=== PATIENT | female | born 1930 | race Caucasian/White ===

== ENCOUNTER 2018-04-24 19:22 | Emergency (ER) | payer OTHER, MEDICAID ==
[~2018-04-24] VITALS: Ht 157.5 cm; Wt 63.5 kg
[2018-04-24 19:22] VITALS: BP_SYST 149
[2018-04-24] MEDS ORDERED: NACL 0.9% 1,000 ML IV ONE (19:49)
[2018-04-24] MEDS ORDERED: NITROGLYCERIN 0.4 MG TAB.SUBL SL ONE (20:00)
[2018-04-24] MEDS ORDERED: ASPIRIN 81 MG TAB.CHEW PO ONE (20:00)
[2018-04-24 20:09] LABS: BASOPHILS # (AUTO) 0.1 K/uL (0.0-0.2); BASOPHILS % (AUTO) 0.7 % (0.0-2.0); EOSINOPHILS # (AUTO) 0.2 K/uL (0.0-0.4); EOSINOPHILS % (AUTO) 2.3 % (0.0-4.0); HEMATOCRIT 33.1 % (36-48); HEMOGLOBIN 11.2 g/dL (12.0-16.0); LYMPHOCYTES # (AUTO) 2.4 K/uL (1.0-5.5); LYMPHOCYTES % (AUTO) 29.2 % (20.5-51.5); MEAN CORPUSCULAR HEMOGLOBIN 30 pg (27-31); MEAN CORPUSCULAR HGB CONC 34 % (32-36); MEAN CORPUSCULAR VOLUME 89 fL (79.0-98.0); MONOCYTES % (AUTO) 12.2 % (1.7-9.3); NEUTROPHILS # (AUTO) 4.6 K/uL (1.8-7.7); NEUTROPHILS % (AUTO) 55.6 % (40.0-70.0); RED BLOOD CELL COUNT(AUTO) 3.71 MIL/uL (4.2-6.2); RED CELL DISTRIBUTION WIDTH 13.8 % (9.0-15.0); WHITE BLOOD COUNT (AUTO) 8.3 K/uL (4.8-10.8)
[2018-04-24 20:21] LABS: ANION GAP 8 (5-15); CALCIUM 8.6 mg/dL (8.4-11.0); CHLORIDE 107 mmol/L (98-107); GLUCOSE 117 mg/dL (70-99); POTASSIUM 4.7 mmol/L (3.5-5.1); SODIUM SERUM 143 mmol/L (136-145); UREA NITROGEN, BLOOD 17 mg/dL (8-21)
[2018-04-24 20:25] LABS: ALANINE AMINOTRANSFERASE 20 U/L (12-78); ALBUMIN 3.2 g/dL (3.4-4.8); AMYLASE 45 U/L (0-100); ASPARTATE AMINOTRANSFERASE 19 U/L (10-37); LIPASE 146 U/L (73-393); TOTAL BILIRUBIN 0.3 mg/dL (0.0-1.0)
[2018-04-24 20:33] LABS: PLATELET COUNT (AUTO) 93 K/uL (130-430)
[2018-04-24 20:44] LABS: INR 1.1 (0.8-1.2); PROTHROMBIN TIME 10.8 SECS (9.5-12.5)
[2018-04-24 23:14] VITALS: BP_SYST 149
== END 2018-04-24 23:14 | disposition home or self-care (01) ==
LOC: SED 19:22
DX: R07.89 Other chest pain (principal); R03.0 Elevated blood-pressure reading, without diagnosis of hypertension; Z90.710 Acquired absence of both cervix and uterus; Z90.49 Acquired absence of other specified parts of digestive tract
CPT/HCPCS: 36415; 71045; 80053; 82150; 82550; 83690; 84484; 85025; 85610; 85730; 93005; 99285; J7030

== ENCOUNTER 2018-12-08 10:03 | Inpatient (IN) | payer OTHER, MEDICAID ==
[~2018-12-08] VITALS: Ht 157.5 cm; Wt 56.7 kg
[2018-12-08 10:13] VITALS: BP_SYST 117
[2018-12-08 12:55] LABS: ANION GAP 7 (5-15); CALCIUM 8.2 mg/dL (8.4-11.0); CHLORIDE 104 mmol/L (98-107); CREATININE 0.89 mg/dL (0.55-1.30); GLUCOSE 115 mg/dL (70-99); POTASSIUM 3.4 mmol/L (3.5-5.1); SODIUM SERUM 135 mmol/L (136-145); UREA NITROGEN, BLOOD 15 mg/dL (8-21)
[2018-12-08 13:05] LABS: HEMATOCRIT 29.7 % (36-48); HEMOGLOBIN 9.6 g/dL (12.0-16.0); MEAN CORPUSCULAR HEMOGLOBIN 28 pg (27-31); MEAN CORPUSCULAR HGB CONC 32 % (32-36); MEAN CORPUSCULAR VOLUME 88 fL (79.0-98.0); PLATELET COUNT (AUTO) 68 K/uL (130-430); RED BLOOD CELL COUNT(AUTO) 3.37 MIL/uL (4.2-6.2); RED CELL DISTRIBUTION WIDTH 14.8 % (9.0-15.0); WHITE BLOOD COUNT (AUTO) 57.1 K/uL (4.8-10.8)
[2018-12-08 13:08] LABS: ALANINE AMINOTRANSFERASE 37 U/L (12-78); ALBUMIN 2.6 g/dL (3.4-4.8); ASPARTATE AMINOTRANSFERASE 56 U/L (10-37); TOTAL BILIRUBIN 0.6 mg/dL (0.0-1.0)
[2018-12-08 13:36] LABS: ERYTHROCYTE SEDIMENTATION RATE 34 MM/HR (0-20)
[2018-12-08 13:47] LABS: BAND % (MANUAL) 15 % (0-6)
[2018-12-08 13:48] LABS: ATYPICAL LYMPHOCYTES % 0 % (0-0); LYMPHOCYTES % (MANUAL) 9 % (20-46)
[2018-12-08 13:49] LABS: BASOPHILS % (MANUAL) 0 % (0-2); BLASTS, MANUAL % 3 % (0-0); EOSINOPHILS % (MANUAL) 0 % (0-7); METAMYELOCYTES % 8 % (0-0); MONOCYTES % (MANUAL) 12 % (0-11); MYELOCYTES % 8 % (0-0); PROMYELOCYTES % 3 % (0-0)
[2018-12-08 13:50] LABS: OTHER CELLS,MANUAL % 0 (0-0)
[2018-12-08] MEDS ORDERED: IOHEXOL 100 ML IV ONE (14:23)
[2018-12-08] MEDS ORDERED: ONDANSETRON HCL 4 MG/2 ML VIAL IVP ONE (16:30)
[2018-12-08] MEDS ORDERED: MORPHINE 4 MG/ML INJ. SYRINGE IVP ONE (16:30)
[2018-12-08] MEDS ORDERED: LEVO88TA5 PO (19:01)
[2018-12-08] MEDS ORDERED: MELO15TA13 PO (19:01)
[2018-12-08] MEDS ORDERED: PRO10 PO (19:01)
[2018-12-08] MEDS ORDERED: OMEP20CA10 PO (19:01)
[2018-12-08] MEDS ORDERED: cefTRIAXone 1 GM IVPB PREMIX 50 ML IV ONE (20:33)
[2018-12-08] MEDS: cefTRIAXone 1 GM in D5W 50 ML IV SCH (20:40)
[2018-12-08 21:20] VITALS: BP_SYST 115
[2018-12-08] MEDS ORDERED: ALBUTEROL SULFATE 0.083% 2.5 MG/3 ML VIAL.NEB INH PRN (23:30)
[2018-12-08] MEDS ORDERED: MORPHINE 4 MG/ML INJ. SYRINGE IVP PRN (23:30)
[2018-12-08] MEDS ORDERED: ACETAMINOPHEN 325 MG TABLET PO PRN (23:30)
[2018-12-08] MEDS ORDERED: ONDANSETRON HCL 4 MG/2 ML VIAL IVP PRN (23:30)
[2018-12-09 00:14] VITALS: BP_SYST 110
[2018-12-09] MEDS: MORPHINE 4 MG/ML INJ. SYRINGE IVP PRN ×3 (05:18→18:32)
[2018-12-09] MEDS: OMEPRAZOLE 20 MG CAPSULE.DR (PriLOSEC) PO SCH (06:33)
[2018-12-09] MEDS: LEVOTHYROXINE SODIUM 0.088 MG TABLET PO SCH (06:33)
[2018-12-09 07:39] LABS: ALANINE AMINOTRANSFERASE 32 U/L (12-78); ALBUMIN 2.4 g/dL (3.4-4.8); ANION GAP 6 (5-15); ASPARTATE AMINOTRANSFERASE 44 U/L (10-37); CALCIUM 7.9 mg/dL (8.4-11.0); CHLORIDE 102 mmol/L (98-107); CREATININE 0.77 mg/dL (0.55-1.30); GLUCOSE 113 mg/dL (70-99); SODIUM SERUM 133 mmol/L (136-145); TOTAL BILIRUBIN 0.8 mg/dL (0.0-1.0); UREA NITROGEN, BLOOD 16 mg/dL (8-21)
[2018-12-09 08:00] VITALS: BP_SYST 129
[2018-12-09 08:30] LABS: HEMATOCRIT 28.1 % (36-48); HEMOGLOBIN 9.1 g/dL (12.0-16.0); MEAN CORPUSCULAR HEMOGLOBIN 29 pg (27-31); MEAN CORPUSCULAR HGB CONC 32 % (32-36); MEAN CORPUSCULAR VOLUME 89 fL (79.0-98.0); PLATELET COUNT (AUTO) 66 K/uL (130-430); RED BLOOD CELL COUNT(AUTO) 3.17 MIL/uL (4.2-6.2); RED CELL DISTRIBUTION WIDTH 15.2 % (9.0-15.0); WHITE BLOOD COUNT (AUTO) 49.5 K/uL (4.8-10.8)
[2018-12-09] MEDS: FLUoxetine HCL 10 MG CAPSULE (PROzac) PO SCH (08:46)
[2018-12-09 10:24] VITALS: BP_SYST 129
[2018-12-09 12:24] LABS: BAND % (MANUAL) 20 % (0-6); LYMPHOCYTES % (MANUAL) 9 % (20-46)
[2018-12-09 12:25] LABS: ATYPICAL LYMPHOCYTES % 0 % (0-0)
[2018-12-09 12:26] LABS: BASOPHILS % (MANUAL) 0 % (0-2); BLASTS, MANUAL % 2 % (0-0); EOSINOPHILS % (MANUAL) 1 % (0-7); METAMYELOCYTES % 4 % (0-0); MONOCYTES % (MANUAL) 14 % (0-11); MYELOCYTES % 4 % (0-0); PROMYELOCYTES % 3 % (0-0)
[2018-12-09 12:49] VITALS: BP_SYST 109
[2018-12-09 16:00] VITALS: BP_SYST 125
[2018-12-09] MEDS: cefTRIAXone 1 GM in D5W 50 ML IV SCH (18:33)
[2018-12-09] MEDS ORDERED: VANCOMYCIN HCL 1 GM/NS PREMIX 250 ML IV SCH (21:00)
[2018-12-09] MEDS: POLYETHYLENE GLYCOL 3350, 17 GM/ POWD.PACK PO SCH (21:54)
[2018-12-09] MEDS ORDERED: VANCOMYCIN HCL 1000 MG/VIAL IV ONE (22:08)
[2018-12-10 00:03] VITALS: BP_SYST 112
[2018-12-10] MEDS: LEVOTHYROXINE SODIUM 0.088 MG TABLET PO SCH (05:59)
[2018-12-10] MEDS: OMEPRAZOLE 20 MG CAPSULE.DR (PriLOSEC) PO SCH (05:59)
[2018-12-10 08:04] VITALS: BP_SYST 104
[2018-12-10] MEDS: FLUoxetine HCL 10 MG CAPSULE (PROzac) PO SCH (08:17)
[2018-12-10] MEDS: POLYETHYLENE GLYCOL 3350, 17 GM/ POWD.PACK PO SCH (08:18)
[2018-12-10] MEDS: MORPHINE 4 MG/ML INJ. SYRINGE IVP PRN ×2 (08:19→18:26)
[2018-12-10 11:24] VITALS: BP_SYST 109
[2018-12-10 13:53] LABS: TOTAL IRON BIND. CAPACITY 196 ug/dL (250-450)
[2018-12-10 16:15] VITALS: BP_SYST 111
[2018-12-10] MEDS: cefTRIAXone 1 GM in D5W 50 ML IV SCH (18:27)
[2018-12-10 20:00] VITALS: BP_SYST 111
[2018-12-10] MEDS: VANCOMYCIN HCL 750 MG in NS 250 ML IV SCH (21:04)
[2018-12-11 00:42] VITALS: BP_SYST 125
[2018-12-11] MEDS: LEVOTHYROXINE SODIUM 0.088 MG TABLET PO SCH (06:17)
[2018-12-11] MEDS: OMEPRAZOLE 20 MG CAPSULE.DR (PriLOSEC) PO SCH (06:17)
[2018-12-11] MEDS ORDERED: BENZOCAINE 20% 0.5mL UD SPRAY MM ONE (07:33)
[2018-12-11] MEDS ORDERED: fentaNYL CITRATE/PF 100 MCG/2 ML AMP ONE (07:39)
[2018-12-11] MEDS ORDERED: MIDAZOLAM HCL 5 MG/5 ML VIAL ONE (07:40)
[2018-12-11] MEDS ORDERED: SIMETHICONE 40 MG/0.6 ML ML ONE (08:09)
[2018-12-11] MEDS: MORPHINE 4 MG/ML INJ. SYRINGE IVP PRN ×2 (09:36→13:53)
[2018-12-11] MEDS: POLYETHYLENE GLYCOL 3350, 17 GM/ POWD.PACK PO SCH (09:46)
[2018-12-11] MEDS: FLUoxetine HCL 10 MG CAPSULE (PROzac) PO SCH (09:46)
[2018-12-11 10:27] LABS: ANION GAP 8 (5-15); CALCIUM 7.9 mg/dL (8.4-11.0); CHLORIDE 103 mmol/L (98-107); CREATININE 0.63 mg/dL (0.55-1.30); GLUCOSE 113 mg/dL (70-99); POTASSIUM 3.6 mmol/L (3.5-5.1); SODIUM SERUM 134 mmol/L (136-145); UREA NITROGEN, BLOOD 16 mg/dL (8-21)
[2018-12-11 10:30] LABS: HEMATOCRIT 24.9 % (36-48); MEAN CORPUSCULAR HEMOGLOBIN 29 pg (27-31); MEAN CORPUSCULAR HGB CONC 32 % (32-36); MEAN CORPUSCULAR VOLUME 88 fL (79.0-98.0); PLATELET COUNT (AUTO) 86 K/uL (130-430); RED BLOOD CELL COUNT(AUTO) 2.82 MIL/uL (4.2-6.2); RED CELL DISTRIBUTION WIDTH 15.4 % (9.0-15.0)
[2018-12-11 10:32] LABS: ALANINE AMINOTRANSFERASE 40 U/L (12-78); ALBUMIN 2.2 g/dL (3.4-4.8); ASPARTATE AMINOTRANSFERASE 49 U/L (10-37); TOTAL BILIRUBIN 0.8 mg/dL (0.0-1.0); WHITE BLOOD COUNT (AUTO) 50.7 K/uL (4.8-10.8)
[2018-12-11 11:22] VITALS: BP_SYST 129
[2018-12-11 12:19] LABS: BAND % (MANUAL) 13 % (0-6)
[2018-12-11 12:20] LABS: BASOPHILS % (MANUAL) 0 % (0-2); EOSINOPHILS % (MANUAL) 1 % (0-7); LYMPHOCYTES % (MANUAL) 6 % (20-46); METAMYELOCYTES % 2 % (0-0); MONOCYTES % (MANUAL) 14 % (0-11)
[2018-12-11 12:21] LABS: MYELOCYTES % 5 % (0-0)
[2018-12-11 15:57] VITALS: BP_SYST 107
[2018-12-11] MEDS: cefTRIAXone 1 GM in D5W 50 ML IV SCH (18:16)
[2018-12-11 20:55] VITALS: BP_SYST 111
[2018-12-11] MEDS: VANCOMYCIN HCL 750 MG in NS 250 ML IV SCH (20:55)
[2018-12-12 00:25] VITALS: BP_SYST 120
[2018-12-12] MEDS: OMEPRAZOLE 20 MG CAPSULE.DR (PriLOSEC) PO SCH (06:31)
[2018-12-12] MEDS: LEVOTHYROXINE SODIUM 0.088 MG TABLET PO SCH (06:31)
[2018-12-12 07:32] VITALS: BP_SYST 120
[2018-12-12 08:00] VITALS: BP_SYST 102
[2018-12-12] MEDS: POLYETHYLENE GLYCOL 3350, 17 GM/ POWD.PACK PO SCH (08:40)
[2018-12-12] MEDS: FLUoxetine HCL 10 MG CAPSULE (PROzac) PO SCH (08:40)
[2018-12-12 12:05] VITALS: BP_SYST 97
[2018-12-12] MEDS ORDERED: NS 250 ML IV ONE (15:00)
[2018-12-12 16:38] VITALS: BP_SYST 91
[2018-12-12] MEDS: MORPHINE 4 MG/ML INJ. SYRINGE IVP PRN (19:51)
[2018-12-12 20:00] VITALS: BP_SYST 103
[2018-12-13] MEDS: LEVOTHYROXINE SODIUM 0.088 MG TABLET PO SCH (06:05)
[2018-12-13] MEDS: OMEPRAZOLE 20 MG CAPSULE.DR (PriLOSEC) PO SCH (06:05)
[2018-12-13 08:00] VITALS: BP_SYST 118
[2018-12-13] MEDS: POLYETHYLENE GLYCOL 3350, 17 GM/ POWD.PACK PO SCH (08:25)
[2018-12-13] MEDS: FLUoxetine HCL 10 MG CAPSULE (PROzac) PO SCH (08:25)
[2018-12-13] MEDS: MORPHINE 4 MG/ML INJ. SYRINGE IVP PRN ×2 (08:27→22:35)
[2018-12-13 12:02] VITALS: BP_SYST 113
[2018-12-13 14:06] LABS: RED BLOOD CELL COUNT(AUTO) 2.42 MIL/uL (4.2-6.2)
[2018-12-13 14:07] LABS: MEAN CORPUSCULAR HEMOGLOBIN 29 pg (27-31); MEAN CORPUSCULAR HGB CONC 32 % (32-36); MEAN CORPUSCULAR VOLUME 89 fL (79.0-98.0); PLATELET COUNT (AUTO) 123 K/uL (130-430); RED CELL DISTRIBUTION WIDTH 15.4 % (9.0-15.0)
[2018-12-13 14:13] LABS: HEMOGLOBIN 6.9 g/dL (12.0-16.0)
[2018-12-13 14:14] LABS: HEMATOCRIT 21.4 % (36-48)
[2018-12-13 14:51] LABS: BAND % (MANUAL) 21 % (0-6); BASOPHILS % (MANUAL) 0 % (0-2); EOSINOPHILS % (MANUAL) 0 % (0-7); LYMPHOCYTES % (MANUAL) 15 % (20-46); METAMYELOCYTES % 8 % (0-0); MONOCYTES % (MANUAL) 5 % (0-11); MYELOCYTES % 6 % (0-0)
[2018-12-13 16:02] VITALS: BP_SYST 121
[2018-12-13 20:40] VITALS: BP_SYST 119
[2018-12-14 00:37] VITALS: BP_SYST 111
[2018-12-14] MEDS: LEVOTHYROXINE SODIUM 0.088 MG TABLET PO SCH (06:26)
[2018-12-14] MEDS: OMEPRAZOLE 20 MG CAPSULE.DR (PriLOSEC) PO SCH (06:26)
[2018-12-14 08:05] LABS: HEMATOCRIT 26.6 % (36-48); HEMOGLOBIN 8.5 g/dL (12.0-16.0); MEAN CORPUSCULAR VOLUME 90 fL (79.0-98.0); RED BLOOD CELL COUNT(AUTO) 2.96 MIL/uL (4.2-6.2)
[2018-12-14 08:06] LABS: MEAN CORPUSCULAR HEMOGLOBIN 29 pg (27-31); MEAN CORPUSCULAR HGB CONC 32 % (32-36); PLATELET COUNT (AUTO) 117 K/uL (130-430)
[2018-12-14 08:08] LABS: WHITE BLOOD COUNT (AUTO) 48.9 K/uL (4.8-10.8)
[2018-12-14] MEDS: POLYETHYLENE GLYCOL 3350, 17 GM/ POWD.PACK PO SCH (08:53)
[2018-12-14] MEDS: FLUoxetine HCL 10 MG CAPSULE (PROzac) PO SCH (08:53)
[2018-12-14] MEDS: MORPHINE 4 MG/ML INJ. SYRINGE IVP PRN (10:12)
[2018-12-14] MEDS ORDERED: LR 1,000 ML IV.SOLN IV ONE (10:50)
[2018-12-14] MEDS ORDERED: PROPOFOL 200MG/ 20ML VIAL (DIPRIVAN) IV ONE (10:50)
[2018-12-14] MEDS ORDERED: MIDAZOLAM HCL 5 MG/5 ML VIAL IVP ONE (10:50)
[2018-12-14] MEDS ORDERED: LIDOCAINE 1% 10 MG/ML, 20 ML MDV INJ ONE (10:50)
[2018-12-14 11:31] VITALS: BP_SYST 121
[2018-12-14 11:52] LABS: BAND % (MANUAL) 20 % (0-6); BASOPHILS % (MANUAL) 0 % (0-2); EOSINOPHILS % (MANUAL) 0 % (0-7); LYMPHOCYTES % (MANUAL) 17 % (20-46); METAMYELOCYTES % 6 % (0-0); MONOCYTES % (MANUAL) 1 % (0-11); MYELOCYTES % 5 % (0-0)
[2018-12-14 13:37] VITALS: BP_SYST 121
[2018-12-14] MEDS ORDERED: LEVO750T45 PO (13:41)
[2018-12-14] MEDS ORDERED: HYDR-4272 PO (13:41)
== END 2018-12-14 14:10 | disposition home or self-care (01) | DRG 840 ==
LOC: SED 10:03 → SMU 19:00
PROVIDERS: ADMIT Internal Medicine; ATTEND Internal Medicine
PROC: 0DB68ZX Excision of Stomach, Via Natural or Artificial Opening Endoscopic, Diagnostic (ICD-10-PCS; principal; 2018-12-11 08:00)
PROC: 07DR3ZX Extraction of Iliac Bone Marrow, Percutaneous Approach, Diagnostic (ICD-10-PCS; 2018-12-12)
DX: D47.1 Chronic myeloproliferative disease (principal); E43 Unspecified severe protein-calorie malnutrition; R65.10 Systemic inflammatory response syndrome (SIRS) of non-infectious origin without acute organ dysfunction; D72.829 Elevated white blood cell count, unspecified; R10.9 Unspecified abdominal pain; K43.9 Ventral hernia without obstruction or gangrene; K29.50 Unspecified chronic gastritis without bleeding; K44.9 Diaphragmatic hernia without obstruction or gangrene; D64.9 Anemia, unspecified; E87.6 Hypokalemia; K20.9 Esophagitis, unspecified; M06.9 Rheumatoid arthritis, unspecified; E03.9 Hypothyroidism, unspecified; M19.90 Unspecified osteoarthritis, unspecified site; D69.6 Thrombocytopenia, unspecified; I10 Essential (primary) hypertension; Z87.11 Personal history of peptic ulcer disease; Z90.49 Acquired absence of other specified parts of digestive tract; Z90.710 Acquired absence of both cervix and uterus; Z79.899 Other long term (current) drug therapy; Z91.012 Allergy to eggs; Z88.5 Allergy status to narcotic agent; Z91.048 Other nonmedicinal substance allergy status; Z82.69 Family history of other diseases of the musculoskeletal system and connective tissue
CPT/HCPCS: 36415; 38221; 43239; 71045; 78306; 80053; 80202-TC; 83540-TC; 83550-TC; 83605; 83615-TC; 85007; 85027; 85044-TC; 85060; 85097; 85651-TC; 86886; 86900; 86901; 86920; 87040-TC; 87081; 88305; 88311; 88313; 88341; 88342; 93005; 93306; 96374; 96375; 99285; A9503; G0463; J0696; J2001; J2250; J2270; J2405; J2704; J3010; J3370; J7030; J7050; J7060; J7120; P9021; Q9967